=== PATIENT | female | born 1985 | race Caucasian/White ===

== ENCOUNTER 2017-11-23 19:12 | Inpatient (IN) | payer BC ==
[2017-11-23] MEDS ORDERED: Sodium Chloride 0.9% 1,000 ML IV STA ×2 (20:10→23:09)
--- NOTE | 2017-11-23 20:11 | ED PDOC ---
HPI: Abdomen Time Seen by Provider: 11/23/17 19:38 Chief Complaint (Nursing): GI Problem Chief Complaint (Provider): Chills, nausea, abdominal spasm History Per: Patient History/Exam Limitations: no limitations Onset/Duration Of Symptoms: Days (yesterday) Current Symptoms Are (Timing): Still Present Associated Symptoms: Fever, Urinary Symptoms Additional Complaint(s): 32 year old female, with no past medical history, presents to the ED complaining of having chills yesterday and nausea, abdominal spasms, and multiple episodes of diarrhea since this morning. Patient reports she had white stool with mucous but is now bloody and also states having a subjective fever and dysuria. Denies having hematuria. PDM: none Past Medical History Reviewed: Historical Data, Nursing Documentation, Vital Signs Vital Signs: Last Vital Signs Temp 98.1 F 11/26/17 08:52 Pulse 71 11/26/17 08:52 Resp 20 11/26/17 08:52 BP 120/80 11/26/17 08:52 Pulse Ox 99 11/27/17 10:34 - Medical History PMH: No Chronic Diseases - Surgical History Surgical History: No Surg Hx - Family History Family History: States: Unknown Family Hx - Social History Current smoker - smoking cessation education provided: No Alcohol: None - Home Medications Home Medications: Ambulatory Orders Medication Instructions Recorded Drospir/Eth Estra/Levomefol Ca 1 tab PO DAILY 11/23/17 [Alem 28 Tablet] Escitalopram [Lexapro] 5 mg PO QAM 11/23/17 - Allergies Allergies/Adverse Reactions: Allergies Allergy/AdvReac Type Severity Reaction Status Date / Time Sulfa (Sulfonamide Allergy RASH Verified 11/23/17 19:23 Antibiotics) Review of Systems ROS Statement: Except As Marked, All Systems Reviewed And Found Negative Constitutional: Positive for: Fever, Chills Gastrointestinal: Positive for: Nausea, Diarrhea, Other (Abdominal spasm) Genitourinary Female: Positive for: Dysuria. Negative for: Hematuria Physical Exam - Reviewed Nursing Documentation Reviewed: Yes Vital Signs Reviewed: Yes - Physical Exam Appears: Positive for: Non-toxic, No Acute Distress Head Exam: Positive for: ATRAUMATIC, NORMOCEPHALIC Skin: Positive for: Normal Color, Warm, Dry Eye Exam: Positive for: Normal appearance Neck: Positive for: Normal, Painless ROM Cardiovascular/Chest: Positive for: Regular Rate, Rhythm. Negative for: Murmur Respiratory: Positive for: Normal Breath Sounds. Negative for: Wheezing, Respiratory Distress Gastrointestinal/Abdominal: Positive for: Tenderness (mild generalized tenderness). Negative for: Guarding, Rebound Extremity: Positive for: Normal ROM Neurologic/Psych: Positive for: Alert, Oriented. Negative for: Motor/Sensory Deficits - Laboratory Results Result Diagrams: 11/24/17 05:30 11/24/17 05:30 - ECG O2 Sat by Pulse Oximetry: 99 (RA) Pulse Ox Interpretation: Normal Medical Decision Making Medical Decision Making: Initial Impression: abdominal spasms and bloody stool. Differentials include but not limited to gastroenteritis, colitis, dehydration, UTI. Initial Plan: Beta HCG CMP Lipase ED urine ED urine dipstick CBC PTT Prothrombin Morphine 2mg IV Sodium chloride 1000mL IV Ondansetron 4mg PO Urinalysis EXAM: CT Abdomen and Pelvis With Intravenous Contrast EXAM DATE/TIME: 11/23/2017 9:25 PM CLINICAL HISTORY: 32 years old, female; Pain and signs and symptoms; Nausea and other: Chills, , bloody diarrhea; Other: Abd. Spasms TECHNIQUE: Axial computed tomography images of the abdomen and pelvis with intravenous contrast. All CT scans at this facility use at least one of these dose optimization techniques: automated exposure control; mA and/or kV adjustment per patient size (includes targeted exams where dose is matched to clinical indication); or iterative reconstruction. CONTRAST: 90 ml of [id number] administered intravenously. COMPARISON: No relevant prior studies available. FINDINGS: ABDOMEN: Liver: Normal. No mass. Gallbladder and bile ducts: Normal. No calcified stones. No ductal dilation. Pancreas: Normal. No ductal dilation. Spleen: Normal. No splenomegaly. Adrenals: Normal. No mass. Kidneys and ureters: Normal. No hydronephrosis. Stomach and bowel: The small bowel and the colon are difficult to evaluate secondary to lack of bowel contrast. There is no bowel dilatation to suggest obstruction. There is moderate wall thickening of the sigmoid colon and the rectum with mild surrounding fat haziness, suggesting colitis/proctitis. There is no bowel dilatation to suggest obstruction. Appendix: No evidence of appendicitis. PELVIS: Bladder: The bladder is moderately distended. Reproductive: There is a 2.5 x 2.7 cm masslike density right adnexa, abutting the right uterus fundus. ABDOMEN and PELVIS: Intraperitoneal space: No free air. No significant fluid collection. Vasculature: There is no extravasated vascular contrast in the gastrointestinal lumen to suggest active gastrointestinal hemorrhage. There is no aortic aneurysm or dissection. Lymph nodes: No enlarged lymph nodes. IMPRESSION: 1. There is moderate wall thickening of the sigmoid colon and the rectum with mild surrounding fat haziness, suggesting colitis/proctitis. 2. There is a 2.5 x 2.7 cm masslike density right adnexa, abutting the right uterus fundus. This could be a pedunculated uterine fibroids or a right ovarian mass. This can be further evaluated with an ultrasound examination. 3. The bladder is moderately distended. Scribe Attestation: Documented by Zach Bourne and Shanon Michelle acting as a scribe for Kimi Rascon MD. Provider Scribe Attestation: All medical record entries made by the Scribe were at my direction and personally dictated by me. I have reviewed the chart and agree that the record accurately reflects my personal performance of the history, physical exam, medical decision making, and the department course for this patient. I have also personally directed, reviewed, and agree with the discharge instructions and disposition. Disposition - Clinical Impression Clinical Impression: Colitis, Proctitis - Disposition Disposition Time: 23:10 Condition: STABLE - Pt Status Changed To: Hospital Disposition Of: Observation - POA Present On Arrival: None
[2017-11-23 20:37] LABS: BASO % 0.2 % (0.0-2.0); EOS % 0.2 % (0.0-4.0); HEMOGLOBIN 13.5 g/dL (12.0-16.0); LYMPH # 1.1 K/uL (1.0-4.3); LYMPH % 16.2 % (20.0-40.0); MEAN CELL VOLUME 92.6 fl (81.0-99.0); MEAN CORPUSCULAR HEMOGLOBIN 31.6 pg (27.0-31.0); MEAN CORPUSCULAR HGB CONC 34.2 g/dL (33.0-37.0); MEAN PLATELET VOLUME 9.5 fl (7.2-11.7); MONO # 0.6 K/uL (0.0-0.8); MONO % 8.8 % (0.0-10.0); NEUT # 4.9 K/uL (1.8-7.0); NEUT % 74.6 % (50.0-75.0); RBC 4.28 Mil/uL (3.80-5.20); RED CELL DISTRIBUTION WIDTH 12.7 % (11.5-14.5); WHITE BLOOD COUNT 6.5 K/uL (4.8-10.8)
[2017-11-23 20:47] LABS: ALB/GLOB RATIO 1.2 (1.0-2.1); ALBUMIN 4.2 g/dL (3.5-5.0); ALT/SGPT 19 U/L (9-52); AST/SGOT 25 U/L (14-36); BLOOD UREA NITROGEN 10 mg/dl (7-17); CALCIUM 9.4 mg/dL (8.4-10.2); GFR AFRICAN-AMERICAN > 60; GFR NON-AFRICAN AMERICAN > 60; LIPASE 120 U/L (23-300)
[2017-11-23 21:15] LABS: INR 0.9 (0.9-1.2); PARTIAL THROMBOPLASTIN TIME 26.5 Seconds (25.6-37.1); PROTHROMBIN TIME 10.2 Seconds (9.8-13.1)
[2017-11-23 21:34] LABS: URINE COLOR STRAW (YELLOW)
[2017-11-23 21:35] LABS: URINE BILIRUBIN NEGATIVE (NEGATIVE); URINE BLOOD NEGATIVE (NEGATIVE); URINE CLARITY CLEAR (Clear); URINE GLUCOSE (UA) NEGATIVE (Normal); URINE PROTEIN NEGATIVE (NEGATIVE); URINE UROBILINOGEN 0.2 mg/dL (0.2-1.0)
[2017-11-23] MEDS ORDERED: Iohexol 300 100 ML IJ ONE (21:35)
[2017-11-23] MEDS ORDERED: Sodium Chloride 0.9% 50 ML IV ONE (21:35)
[2017-11-23 21:36] LABS: SQUAMOUS EPITHIAL 1 /hpf (0-5); URINE BACTERIA FEW (<OCC); URINE LEUKOCYTE ESTERASE NEGATIVE Leu/uL (Negative)
[2017-11-23] MEDS ORDERED: metroNIDAZOLE 500mg/100ml NS 100 ML IV STA (23:09)
[2017-11-23] MEDS ORDERED: Ciprofloxacin 400mg/200ml D5W 400 MG/200 ML BAG IV STA (23:09)
[2017-11-23] MEDS ORDERED: Ciprofloxacin 400mg/200ml D5W 400 MG/200 ML BAG IVPB ONE (23:43)
[2017-11-24 06:21] LABS: BASO % 0.2 % (0.0-2.0); EOS % 0.6 % (0.0-4.0); HEMOGLOBIN 12.4 g/dL (12.0-16.0); LYMPH # 2.3 K/uL (1.0-4.3); MEAN CELL VOLUME 92.3 fl (81.0-99.0); MEAN CORPUSCULAR HEMOGLOBIN 31.9 pg (27.0-31.0); MEAN CORPUSCULAR HGB CONC 34.6 g/dL (33.0-37.0); MEAN PLATELET VOLUME 9.6 fl (7.2-11.7); MONO # 0.8 K/uL (0.0-0.8); MONO % 13.7 % (0.0-10.0); NEUT # 2.6 K/uL (1.8-7.0); NEUT % 45.5 % (50.0-75.0); RBC 3.89 Mil/uL (3.80-5.20); RED CELL DISTRIBUTION WIDTH 12.5 % (11.5-14.5); WHITE BLOOD COUNT 5.8 K/uL (4.8-10.8)
[2017-11-24 06:30] LABS: ALB/GLOB RATIO 1.1 (1.0-2.1); ALBUMIN 3.2 g/dL (3.5-5.0); ALT/SGPT 23 U/L (9-52); AST/SGOT 20 U/L (14-36); BLOOD UREA NITROGEN 7 mg/dl (7-17); CALCIUM 8.8 mg/dL (8.4-10.2); GFR AFRICAN-AMERICAN > 60; GFR NON-AFRICAN AMERICAN > 60; HDL CHOLESTEROL 83 MG/DL (30-70)
[2017-11-24 06:46] LABS: T4 10.5 ug/dl (5.5-11.0)
[2017-11-24 06:48] LABS: LDL CHOLESTEROL 56 mg/dL (0-129)
[2017-11-24 07:00] LABS: T3 1.46 nmol/L (1.49-2.60)
--- NOTE | 2017-11-24 08:56 | CP.PCM.HP ---
<Gloria Pope - Last Filed: 11/24/17 16:16> History of Present Illness - History of Present Illness History of Present Illness: 32 yo F, no past medical hx (has psych hx anxiety), admitted due to abdominal pain with findings of colitis on CT scan done in ED. Pt presented to ED with c/ o chills, nausea, abdominal spasms, multiple episodes of diarrhea since morning of presentation. States she had one BM that was white/mucousy, and one that was bloody. yesterday and nausea, abdominal spasms, and multiple episodes of diarrhea since this morning. Patient reports she had white stool with mucous but is now bloody. Pt relates that she went to [place] recently and ate seafood, as well as drank water and did not really pay attention to what she ate. PDM: [facility] (Dr. Jeffrey) Surg hx: none Fam hx: htn, constipation Soc hx: denies tobacco, drugs. alcohol 1-2 drinks/week Allergies: sulfa Meds: lexapro, control pill Present on Admission - Present on Admission Any Indicators Present on Admission: No Review of Systems - Review of Systems All systems: reviewed and no additional remarkable complaints except - Constitutional Constitutional: Chills - Gastrointestinal Gastrointestinal: Abdominal Pain, Change in Bowel Habits, Hematochezia, Nausea Past Patient History - Past Medical History & Family History Past Medical History?: Yes - Past Social History Smoking Status: Never Smoked Alcohol: None Drugs: Denies - CARDIAC Hx Cardiac Disorders: No - PULMONARY Hx Respiratory Disorders: No - NEUROLOGICAL Hx Neurological Disorder: No - HEENT Hx HEENT Problems: No - RENAL Hx Chronic Kidney Disease: No - ENDOCRINE/METABOLIC Hx Endocrine Disorders: No - HEMATOLOGICAL/ONCOLOGICAL Hx Blood Disorders: No - INTEGUMENTARY Hx Dermatological Problems: No - MUSCULOSKELETAL/RHEUMATOLOGICAL Hx Musculoskeletal Disorders: No Hx Falls: No - GASTROINTESTINAL Hx Gastrointestinal Disorders: No - GENITOURINARY/GYNECOLOGICAL Hx Genitourinary Disorders: No - PSYCHIATRIC Hx Psychophysiologic Disorder: No Hx Substance Use: No - SURGICAL HISTORY Hx Surgeries: No - ANESTHESIA Hx Anesthesia: No Hx Anesthesia Reactions: No Hx Malignant Hyperthermia: No Has any member of the family had a problem w/ anesthesia?: No Meds Allergies/Adverse Reactions: Allergies Allergy/AdvReac Type Severity Reaction Status Date / Time Sulfa (Sulfonamide Allergy RASH Verified 11/23/17 19:23 Antibiotics) Physical Exam - Constitutional Appears: Non-toxic - Eye Exam Eye Exam: Normal appearance - Respiratory Exam Respiratory Exam: Clear to Auscultation Bilateral, NORMAL BREATHING PATTERN - Cardiovascular Exam Cardiovascular Exam: REGULAR RHYTHM - GI/Abdominal Exam GI & Abdominal Exam: Normal Bowel Sounds, Tenderness (mild, diffuse) - Extremities Exam Extremities exam: Positive for: normal inspection. Negative for: calf tenderness - Neurological Exam Neurological exam: Alert, Oriented x3 - Psychiatric Exam Psychiatric exam: Normal Mood - Skin Skin Exam: Normal Color, Warm Results - Vital Signs Recent Vital Signs: Last Vital Signs Temp 98.2 F 11/24/17 08:23 Pulse 64 11/24/17 08:23 Resp 19 11/24/17 08:23 BP 112/72 11/24/17 08:23 Pulse Ox 99 11/24/17 08:23 - Labs Result Diagrams: 11/24/17 05:30 11/24/17 05:30 Labs: Laboratory Results - last 24 hr 11/23/17 11/23/17 11/23/17 20:30 20:30 20:30 WBC 6.5 RBC 4.28 Hgb 13.5 Hct 39.6 MCV 92.6 MCH 31.6 H MCHC 34.2 RDW 12.7 Plt Count 168 MPV 9.5 Neut % (Auto) 74.6 Lymph % (Auto) 16.[address] [place] % (Auto) 8.8 Eos % (Auto) 0.2 Baso % (Auto) 0.2 Neut # (Auto) 4.9 Lymph # (Auto) 1.1 [place] # (Auto) 0.6 Eos # (Auto) 0.0 Baso # (Auto) 0.0 PT 10.2 INR 0.9 APTT 26.5 Sodium 138 Potassium 4.5 Chloride 104 Carbon Dioxide 24 Anion Gap 15 BUN 10 Creatinine 0.7 Est GFR ( Amer) > 60 Est GFR (Non-Af Amer) > 60 Random Glucose 106 H Calcium 9.4 Total Bilirubin 0.3 AST 25 ALT 19 Alkaline Phosphatase 43 Total Protein 7.8 Albumin 4.2 Globulin 3.6 Albumin/Globulin Ratio 1.2 Triglycerides Cholesterol LDL Cholesterol Direct HDL Cholesterol Lipase 120 Thyroxine (T4) Total T3 TSH 3rd Generation Beta HCG, Quant Urine Color Urine Clarity Urine pH Ur Specific [place] Urine Protein Urine Glucose (UA) Urine Ketones Urine Blood Urine Nitrate Urine Bilirubin Urine Urobilinogen Ur Leukocyte Esterase Urine RBC (Auto) Urine Microscopic WBC Ur Squamous Epith Cells Urine Bacteria 11/23/17 11/23/17 11/24/17 20:30 21:17 05:30 WBC 5.8 RBC 3.89 Hgb 12.4 Hct 35.9 MCV 92.3 MCH 31.9 H MCHC 34.6 RDW 12.5 Plt Count 151 MPV 9.6 Neut % (Auto) 45.5 L Lymph % (Auto) 40.0 [place] % (Auto) 13.7 H Eos % (Auto) 0.6 Baso % (Auto) 0.2 Neut # (Auto) 2.6 Lymph # (Auto) 2.3 [place] # (Auto) 0.8 Eos # (Auto) 0.0 Baso # (Auto) 0.0 PT INR APTT Sodium Potassium Chloride Carbon Dioxide Anion Gap BUN Creatinine Est GFR ( Amer) Est GFR (Non-Af Amer) Random Glucose Calcium Total Bilirubin AST ALT Alkaline Phosphatase Total Protein Albumin Globulin Albumin/Globulin Ratio Triglycerides Cholesterol LDL Cholesterol Direct HDL Cholesterol Lipase Thyroxine (T4) Total T3 TSH 3rd Generation Beta HCG, Quant < 2.39 Urine Color Straw Urine Clarity Clear Urine pH 7.0 Ur Specific [place] < 1.005 Urine Protein Negative Urine Glucose (UA) Negative Urine Ketones Negative Urine Blood Negative Urine Nitrate Negative Urine Bilirubin Negative Urine Urobilinogen 0.2 Ur Leukocyte Esterase Negative Urine RBC (Auto) 1 Urine Microscopic WBC < 1 Ur Squamous Epith Cells 1 Urine Bacteria Few H 11/24/17 05:30 WBC RBC Hgb Hct MCV MCH MCHC RDW Plt Count MPV Neut % (Auto) Lymph % (Auto) [place] % (Auto) Eos % (Auto) Baso % (Auto) Neut # (Auto) Lymph # (Auto) [place] # (Auto) Eos # (Auto) Baso # (Auto) PT INR APTT Sodium 139 Potassium 4.1 Chloride 107 Carbon Dioxide 25 Anion Gap 11 BUN 7 Creatinine 0.8 Est GFR ( Amer) > 60 Est GFR (Non-Af Amer) > 60 Random Glucose 88 Calcium 8.8 Total Bilirubin 0.2 AST 20 ALT 23 Alkaline Phosphatase 34 L D Total Protein 6.3 Albumin 3.2 L D Globulin 3.1 Albumin/Globulin Ratio 1.1 Triglycerides 92 Cholesterol 163 LDL Cholesterol Direct 56 HDL Cholesterol 83 H Lipase Thyroxine (T4) 10.5 Total T3 1.46 L TSH 3rd Generation 9.37 H Beta HCG, Quant Urine Color Urine Clarity Urine pH Ur Specific [place] Urine Protein Urine Glucose (UA) Urine Ketones Urine Blood Urine Nitrate Urine Bilirubin Urine Urobilinogen Ur Leukocyte Esterase Urine RBC (Auto) Urine Microscopic WBC Ur Squamous Epith Cells Urine Bacteria Assessment & Plan - Assessment and Plan (Free Text) Assessment: 32 yo F with no known med hx; admitted due to abdominal pain and change in stool character, with findings of colitis on CT. Also finding of right adnexal masslike density on CT. Plan: - Admitted to med surg - IV fluids - Pain control - IV abx: cipro and flagyll - GI consult- Dr. Parham -- stool for ova/parasites - Pelvic u/s to f/u adnexal mass - Liquid diet - SCD <Aureliano Cavazos K - Last Filed: 11/24/17 20:16> Results - Vital Signs Recent Vital Signs: Last Vital Signs Temp 97.9 F 11/24/17 16:11 Pulse 58 L 11/24/17 16:11 Resp 18 11/24/17 16:11 BP 105/66 11/24/17 16:11 Pulse Ox 100 11/24/17 16:11 - Labs Result Diagrams: 11/24/17 05:30 11/24/17 05:30 Labs: Laboratory Results - last 24 hr 11/23/17 11/23/17 11/23/17 20:30 20:30 20:30 WBC 6.5 RBC 4.28 Hgb 13.5 Hct 39.6 MCV 92.6 MCH 31.6 H MCHC 34.2 RDW 12.7 Plt Count 168 MPV 9.5 Neut % (Auto) 74.6 Lymph % (Auto) 16.[address] [place] % (Auto) 8.8 Eos % (Auto) 0.2 Baso % (Auto) 0.2 Neut # (Auto) 4.9 Lymph # (Auto) 1.1 [place] # (Auto) 0.6 Eos # (Auto) 0.0 Baso # (Auto) 0.0 PT 10.2 INR 0.9 APTT 26.5 Sodium 138 Potassium 4.5 Chloride 104 Carbon Dioxide 24 Anion Gap 15 BUN 10 Creatinine 0.7 Est GFR ( Amer) > 60 Est GFR (Non-Af Amer) > 60 Random Glucose 106 H Calcium 9.4 Total Bilirubin 0.3 AST 25 ALT 19 Alkaline Phosphatase 43 Total Protein 7.8 Albumin 4.2 Globulin 3.6 Albumin/Globulin Ratio 1.2 Triglycerides Cholesterol LDL Cholesterol Direct HDL Cholesterol Lipase 120 Thyroxine (T4) Total T3 TSH 3rd Generation Beta HCG, Quant Urine Color Urine Clarity Urine pH Ur Specific [place] Urine Protein Urine Glucose (UA) Urine Ketones Urine Blood Urine Nitrate Urine Bilirubin Urine Urobilinogen Ur Leukocyte Esterase Urine RBC (Auto) Urine Microscopic WBC Ur Squamous Epith Cells Urine Bacteria 11/23/17 11/23/17 11/24/17 20:30 21:17 05:30 WBC 5.8 RBC 3.89 Hgb 12.4 Hct 35.9 MCV 92.3 MCH 31.9 H MCHC 34.6 RDW 12.5 Plt Count 151 MPV 9.6 Neut % (Auto) 45.5 L Lymph % (Auto) 40.0 [place] % (Auto) 13.7 H Eos % (Auto) 0.6 Baso % (Auto) 0.2 Neut # (Auto) 2.6 Lymph # (Auto) 2.3 [place] # (Auto) 0.8 Eos # (Auto) 0.0 Baso # (Auto) 0.0 PT INR APTT Sodium Potassium Chloride Carbon Dioxide Anion Gap BUN Creatinine Est GFR ( Amer) Est GFR (Non-Af Amer) Random Glucose Calcium Total Bilirubin AST ALT Alkaline Phosphatase Total Protein Albumin Globulin Albumin/Globulin Ratio Triglycerides Cholesterol LDL Cholesterol Direct HDL Cholesterol Lipase Thyroxine (T4) Total T3 TSH 3rd Generation Beta HCG, Quant < 2.39 Urine Color Straw Urine Clarity Clear Urine pH 7.0 Ur Specific [place] < 1.005 Urine Protein Negative Urine Glucose (UA) Negative Urine Ketones Negative Urine Blood Negative Urine Nitrate Negative Urine Bilirubin Negative Urine Urobilinogen 0.2 Ur Leukocyte Esterase Negative Urine RBC (Auto) 1 Urine Microscopic WBC < 1 Ur Squamous Epith Cells 1 Urine Bacteria Few H 11/24/17 05:30 WBC RBC Hgb Hct MCV MCH MCHC RDW Plt Count MPV Neut % (Auto) Lymph % (Auto) [place] % (Auto) Eos % (Auto) Baso % (Auto) Neut # (Auto) Lymph # (Auto) [place] # (Auto) Eos # (Auto) Baso # (Auto) PT INR APTT Sodium 139 Potassium 4.1 Chloride 107 Carbon Dioxide 25 Anion Gap 11 BUN 7 Creatinine 0.8 Est GFR ( Amer) > 60 Est GFR (Non-Af Amer) > 60 Random Glucose 88 Calcium 8.8 Total Bilirubin 0.2 AST 20 ALT 23 Alkaline Phosphatase 34 L D Total Protein 6.3 Albumin 3.2 L D Globulin 3.1 Albumin/Globulin Ratio 1.1 Triglycerides 92 Cholesterol 163 LDL Cholesterol Direct 56 HDL Cholesterol 83 H Lipase Thyroxine (T4) 10.5 Total T3 1.46 L TSH 3rd Generation 9.37 H Beta HCG, Quant Urine Color Urine Clarity Urine pH Ur Specific [place] Urine Protein Urine Glucose (UA) Urine Ketones Urine Blood Urine Nitrate Urine Bilirubin Urine Urobilinogen Ur Leukocyte Esterase Urine RBC (Auto) Urine Microscopic WBC Ur Squamous Epith Cells Urine Bacteria Assessment & Plan - Assessment and Plan (Free Text) Plan: Patient was personally seen and examined by me in rounds with residents. Available labs and diagnostic data reviewed. Case, Patient's condition and management plan discussed with residents in rounds. Agree with resident's progress note. Plan: As ordered.
[2017-11-24] MEDS ORDERED: Chlorhexidine Gluconate 1 APPL/PKT TP ONE (08:59)
--- NOTE | 2017-11-24 09:36 | CP.PCM.CON ---
<Prabha Magdaleno - Last Filed: 11/24/17 18:21> History of Present Illness - History of Present Illness History of Present Illness: Pgy5 Initial GI Consult Mandy Sumner is a 32F w/ no sig medical hx who presents to the ER who sever abd pain. Pt states that the onset was 1 day prior and it was 10 out of 10. She states that the pain was in the periumbilical area. she noted diarrhea after having the abd pain. She states that the stool was initially liquid but then had mixed bright red blood. Pt denies any previous episode. Recently traveled to [place] 3 days prior. denies any nause, vomiting. + Fever and chills. Denies any recent abx use, consumption of raw meat, camping, or hospitalizations Surg hx: none Fam hx: htn, constipation Soc hx: denies tobacco, drugs. alcohol 1-2 drinks/week Allergies: sulfa Ros: 12 point ROS conducted, neg other than above Past Patient History - Past Medical History & Family History Past Medical History?: Yes - Past Social History Smoking Status: Never Smoked - CARDIAC Hx Cardiac Disorders: No - PULMONARY Hx Respiratory Disorders: No - NEUROLOGICAL Hx Neurological Disorder: No - HEENT Hx HEENT Problems: No - RENAL Hx Chronic Kidney Disease: No - ENDOCRINE/METABOLIC Hx Endocrine Disorders: No - HEMATOLOGICAL/ONCOLOGICAL Hx Blood Disorders: No - INTEGUMENTARY Hx Dermatological Problems: No - MUSCULOSKELETAL/RHEUMATOLOGICAL Hx Musculoskeletal Disorders: No Hx Falls: No - GASTROINTESTINAL Hx Gastrointestinal Disorders: No - GENITOURINARY/GYNECOLOGICAL Hx Genitourinary Disorders: No - PSYCHIATRIC Hx Psychophysiologic Disorder: No Hx Substance Use: No - SURGICAL HISTORY Hx Surgeries: No - ANESTHESIA Hx Anesthesia: No Hx Anesthesia Reactions: No Hx Malignant Hyperthermia: No Has any member of the family had a problem w/ anesthesia?: No Meds Allergies/Adverse Reactions: Allergies Allergy/AdvReac Type Severity Reaction Status Date / Time Sulfa (Sulfonamide Allergy RASH Verified 11/23/17 19:23 Antibiotics) - Medications Medications: Current Medications Escitalopram Oxalate (Lexapro) 5 mg PO QAM [facility] Ciprofloxacin (Cipro 400mg/200ml Dsw) 400 mg in 200 mls @ 200 mls/hr IVPB Q12 [facility] PRN Reason: Protocol Metronidazole (Flagyl 500mg/100ml Ns) 100 mls @ 100 mls/hr IVPB Q8 [facility] PRN Reason: Protocol Morphine Sulfate (Morphine) 2 mg IVP Q6 PRN PRN Reason: Pain, moderate (4-7) Last Admin: 11/24/17 00:56 Dose: 2 mg Pantoprazole Sodium (Protonix Ec Tab) 40 mg PO DAILY [facility] Physical Exam - Constitutional Appears: Well, No Acute Distress - Head Exam Head Exam: ATRAUMATIC, NORMOCEPHALIC - Eye Exam Eye Exam: Normal appearance - ENT Exam ENT Exam: Mucous Membranes Moist, Normal Exam - Neck Exam Neck exam: Positive for: Normal Inspection - Respiratory Exam Respiratory Exam: Clear to Auscultation Bilateral, NORMAL BREATHING PATTERN. absent: Rales, Rhonchi, Wheezes, Respiratory Distress - Cardiovascular Exam Cardiovascular Exam: REGULAR RHYTHM, +S1, +S2 - GI/Abdominal Exam GI & Abdominal Exam: Hyperactive Bowel Sounds, Soft, Tenderness (periumbilical area). absent: Diminished Bowel Sounds, Distended, Firm, Guarding, Organomegaly , Pulsatile Mass, Rebound, Rigid - Extremities Exam Extremities exam: Negative for: joint swelling, pedal edema - Back Exam Back exam: NORMAL INSPECTION - Psychiatric Exam Psychiatric exam: Normal Affect, Normal Mood - Skin Skin Exam: Dry, Intact, Normal Color, Warm Results - Vital Signs Recent Vital Signs: Last Vital Signs Temp 98.2 F 11/24/17 08:23 Pulse 64 11/24/17 08:23 Resp 19 11/24/17 08:23 BP 112/72 11/24/17 08:23 Pulse Ox 99 11/24/17 08:23 - Labs Result Diagrams: 11/24/17 05:30 11/24/17 05:30 Labs: Laboratory Results - last 24 hr 11/23/17 11/23/17 11/23/17 20:30 20:30 20:30 WBC 6.5 RBC 4.28 Hgb 13.5 Hct 39.6 MCV 92.6 MCH 31.6 H MCHC 34.2 RDW 12.7 Plt Count 168 MPV 9.5 Neut % (Auto) 74.6 Lymph % (Auto) 16.2 L [place] % (Auto) 8.8 Eos % (Auto) 0.2 Baso % (Auto) 0.2 Neut # (Auto) 4.9 Lymph # (Auto) 1.1 [place] # (Auto) 0.6 Eos # (Auto) 0.0 Baso # (Auto) 0.0 PT 10.2 INR 0.9 APTT 26.5 Sodium 138 Potassium 4.5 Chloride 104 Carbon Dioxide 24 Anion Gap 15 BUN 10 Creatinine 0.7 Est GFR ( Amer) > 60 Est GFR (Non-Af Amer) > 60 Random Glucose 106 H Calcium 9.4 Total Bilirubin 0.3 AST 25 ALT 19 Alkaline Phosphatase 43 Total Protein 7.8 Albumin 4.2 Globulin 3.6 Albumin/Globulin Ratio 1.2 Triglycerides Cholesterol LDL Cholesterol Direct HDL Cholesterol Lipase 120 Thyroxine (T4) Total T3 TSH 3rd Generation Beta HCG, Quant Urine Color Urine Clarity Urine pH Ur Specific Fitzhugh Urine Protein Urine Glucose (UA) Urine Ketones Urine Blood Urine Nitrate Urine Bilirubin Urine Urobilinogen Ur Leukocyte Esterase Urine RBC (Auto) Urine Microscopic WBC Ur Squamous Epith Cells Urine Bacteria 11/23/17 11/23/17 11/24/17 20:30 21:17 05:30 WBC 5.8 RBC 3.89 Hgb 12.4 Hct 35.9 MCV 92.3 MCH 31.9 H MCHC 34.6 RDW 12.5 Plt Count 151 MPV 9.6 Neut % (Auto) 45.5 L Lymph % (Auto) 40.0 Prowers % (Auto) 13.7 H Eos % (Auto) 0.6 Baso % (Auto) 0.2 Neut # (Auto) 2.6 Lymph # (Auto) 2.3 [place] # (Auto) 0.8 Eos # (Auto) 0.0 Baso # (Auto) 0.0 PT INR APTT Sodium Potassium Chloride Carbon Dioxide Anion Gap BUN Creatinine Est GFR ( Amer) Est GFR (Non-Af Amer) Random Glucose Calcium Total Bilirubin AST ALT Alkaline Phosphatase Total Protein Albumin Globulin Albumin/Globulin Ratio Triglycerides Cholesterol LDL Cholesterol Direct HDL Cholesterol Lipase Thyroxine (T4) Total T3 TSH 3rd Generation Beta HCG, Quant < 2.39 Urine Color Straw Urine Clarity Clear Urine pH 7.0 Ur Specific Fitzhugh < 1.005 Urine Protein Negative Urine Glucose (UA) Negative Urine Ketones Negative Urine Blood Negative Urine Nitrate Negative Urine Bilirubin Negative Urine Urobilinogen 0.2 Ur Leukocyte Esterase Negative Urine RBC (Auto) 1 Urine Microscopic WBC < 1 Ur Squamous Epith Cells 1 Urine Bacteria Few H 11/24/17 05:30 WBC RBC Hgb Hct MCV MCH MCHC RDW Plt Count MPV Neut % (Auto) Lymph % (Auto) Prowers % (Auto) Eos % (Auto) Baso % (Auto) Neut # (Auto) Lymph # (Auto) [place] # (Auto) Eos # (Auto) Baso # (Auto) PT INR APTT Sodium 139 Potassium 4.1 Chloride 107 Carbon Dioxide 25 Anion Gap 11 BUN 7 Creatinine 0.8 Est GFR ( Amer) > 60 Est GFR (Non-Af Amer) > 60 Random Glucose 88 Calcium 8.8 Total Bilirubin 0.2 AST 20 ALT 23 Alkaline Phosphatase 34 L D Total Protein 6.3 Albumin 3.2 L D Globulin 3.1 Albumin/Globulin Ratio 1.1 Triglycerides 92 Cholesterol 163 LDL Cholesterol Direct 56 HDL Cholesterol 83 H Lipase Thyroxine (T4) 10.5 Total T3 1.46 L TSH 3rd Generation 9.37 H Beta HCG, Quant Urine Color Urine Clarity Urine pH Ur Specific Fitzhugh Urine Protein Urine Glucose (UA) Urine Ketones Urine Blood Urine Nitrate Urine Bilirubin Urine Urobilinogen Ur Leukocyte Esterase Urine RBC (Auto) Urine Microscopic WBC Ur Squamous Epith Cells Urine Bacteria Assessment & Plan - Assessment and Plan (Free Text) Assessment: Mandy Sumner is a 32F w/ no sig hx who presents to the ER with abd pain. CT abd revealed sigmoid colitis and an adnexal mass Colitis, etiology uknown, dx: infectous vs IBD, r/o malignancy Adnexal mass diarrhea 2/2 colitis nausea Plan: -CT abd/pel reviewed by Dr Parham -continue IV abx, cipro flagyl, finish 7 day course at home -follow-up w/ Dr. parham as an outpt for colonoscopy -stool cultures and c.diff -diet as tolerated -continue IV fluids -recommend [employer] eval for adnexal mass -blood cultures x2 D/W Dr. parham <Jennifer Parham - Last Filed: 11/24/17 18:41> Meds - Medications Medications: Current Medications Escitalopram Oxalate (Lexapro) 5 mg PO QAM [facility] Last Admin: 11/24/17 16:42 Dose: 5 mg Ciprofloxacin (Cipro 400mg/200ml Dsw) 400 mg in 200 mls @ 200 mls/hr IVPB Q12 [facility] PRN Reason: Protocol Last Admin: 11/24/17 13:25 Dose: 200 mls/hr Metronidazole (Flagyl 500mg/100ml Ns) 100 mls @ 100 mls/hr IVPB Q8 [facility] PRN Reason: Protocol Last Admin: 11/24/17 16:42 Dose: 100 mls/hr Morphine Sulfate (Morphine) 2 mg IVP Q6 PRN PRN Reason: Pain, moderate (4-7) Last Admin: 11/24/17 13:24 Dose: 2 mg Pantoprazole Sodium (Protonix Ec Tab) 40 mg PO DAILY [facility] Last Admin: 11/24/17 13:24 Dose: 40 mg Results - Vital Signs Recent Vital Signs: Last Vital Signs Temp 97.9 F 11/24/17 16:11 Pulse 58 L 11/24/17 16:11 Resp 18 11/24/17 16:11 BP 105/66 11/24/17 16:11 Pulse Ox 100 11/24/17 16:11 - Labs Result Diagrams: 11/24/17 05:30 11/24/17 05:30 Labs: Laboratory Results - last 24 hr 11/23/17 11/23/17 11/23/17 20:30 20:30 20:30 WBC 6.5 RBC 4.28 Hgb 13.5 Hct 39.6 MCV 92.6 MCH 31.6 H MCHC 34.2 RDW 12.7 Plt Count 168 MPV 9.5 Neut % (Auto) 74.6 Lymph % (Auto) 16.2 L [place] % (Auto) 8.8 Eos % (Auto) 0.2 Baso % (Auto) 0.2 Neut # (Auto) 4.9 Lymph # (Auto) 1.1 [place] # (Auto) 0.6 Eos # (Auto) 0.0 Baso # (Auto) 0.0 PT 10.2 INR 0.9 APTT 26.5 Sodium 138 Potassium 4.5 Chloride 104 Carbon Dioxide 24 Anion Gap 15 BUN 10 Creatinine 0.7 Est GFR ( Amer) > 60 Est GFR (Non-Af Amer) > 60 Random Glucose 106 H Calcium 9.4 Total Bilirubin 0.3 AST 25 ALT 19 Alkaline Phosphatase 43 Total Protein 7.8 Albumin 4.2 Globulin 3.6 Albumin/Globulin Ratio 1.2 Triglycerides Cholesterol LDL Cholesterol Direct HDL Cholesterol Lipase 120 Thyroxine (T4) Total T3 TSH 3rd Generation Beta HCG, Quant Urine Color Urine Clarity Urine pH Ur Specific Fitz[place]ugh Urine Protein Urine Glucose (UA) Urine Ketones Urine Blood Urine Nitrate Urine Bilirubin Urine Urobilinogen Ur Leukocyte Esterase Urine RBC (Auto) Urine Microscopic WBC Ur Squamous Epith Cells Urine Bacteria 11/23/17 11/23/17 11/24/17 20:30 21:17 05:30 WBC 5.8 RBC 3.89 Hgb 12.4 Hct 35.9 MCV 92.3 MCH 31.9 H MCHC 34.6 RDW 12.5 Plt Count 151 MPV 9.6 Neut % (Auto) 45.5 L Lymph % (Auto) 40.0 [place] % (Auto) 13.7 H Eos % (Auto) 0.6 Baso % (Auto) 0.2 Neut # (Auto) 2.6 Lymph # (Auto) 2.3 [place] # (Auto) 0.8 Eos # (Auto) 0.0 Baso # (Auto) 0.0 PT INR APTT Sodium Potassium Chloride Carbon Dioxide Anion Gap BUN Creatinine Est GFR ( Amer) Est GFR (Non-Af Amer) Random Glucose Calcium Total Bilirubin AST ALT Alkaline Phosphatase Total Protein Albumin Globulin Albumin/Globulin Ratio Triglycerides Cholesterol LDL Cholesterol Direct HDL Cholesterol Lipase Thyroxine (T4) Total T3 TSH 3rd Generation Beta HCG, Quant < 2.39 Urine Color Straw Urine Clarity Clear Urine pH 7.0 Ur Specific Fitzhugh < 1.005 Urine Protein Negative Urine Glucose (UA) Negative Urine Ketones Negative Urine Blood Negative Urine Nitrate Negative Urine Bilirubin Negative Urine Urobilinogen 0.2 Ur Leukocyte Esterase Negative Urine RBC (Auto) 1 Urine Microscopic WBC < 1 Ur Squamous Epith Cells 1 Urine Bacteria Few H 11/24/17 05:30 WBC RBC Hgb Hct MCV MCH MCHC RDW Plt Count MPV Neut % (Auto) Lymph % (Auto) [place] % (Auto) Eos % (Auto) Baso % (Auto) Neut # (Auto) Lymph # (Auto) [place] # (Auto) Eos # (Auto) Baso # (Auto) PT INR APTT Sodium 139 Potassium 4.1 Chloride 107 Carbon Dioxide 25 Anion Gap 11 BUN 7 Creatinine 0.8 Est GFR ( Amer) > 60 Est GFR (Non-Af Amer) > 60 Random Glucose 88 Calcium 8.8 Total Bilirubin 0.2 AST 20 ALT 23 Alkaline Phosphatase 34 L D Total Protein 6.3 Albumin 3.2 L D Globulin 3.1 Albumin/Globulin Ratio 1.1 Triglycerides 92 Cholesterol 163 LDL Cholesterol Direct 56 HDL Cholesterol 83 H Lipase Thyroxine (T4) 10.5 Total T3 1.46 L TSH 3rd Generation 9.37 H Beta HCG, Quant Urine Color Urine Clarity Urine pH Ur Specific Fitzhugh Urine Protein Urine Glucose (UA) Urine Ketones Urine Blood Urine Nitrate Urine Bilirubin Urine Urobilinogen Ur Leukocyte Esterase Urine RBC (Auto) Urine Microscopic WBC Ur Squamous Epith Cells Urine Bacteria Attending/Attestation - Attestation I have personally seen and examined this patient.: Yes I have fully participated in the care of the patient.: Yes I have reviewed all pertinent clinical information: Yes Notes (Text): 11/24/17 18:28 This is a 32 year old F with no significant history who presents to the ER with abdominal pain and sigmoid colitis and an adnexal mass. CT abdomen with thickening of sigmoid colon. Will give antibiotics and stool infectious work up. Outpatient colonosocpy in 2-4 weeks will be scheduled to rule out malignancy. Clear liquid diet
--- NOTE | 2017-11-24 12:23 | CT ---
Date of service: 11/23/2017 PROCEDURE: CT Abdomen and Pelvis with contrast HISTORY: Diarrhea COMPARISON: None. TECHNIQUE: Contrast dose: 90 mL of Omnipaque 300. Axial and reformatted coronal and sagittal CT images of the abdomen and pelvis were obtained after IV contrast administration Radiation dose: Total exam DLP = 401.9 mGy-cm. This CT exam was performed using one or more of the following dose reduction techniques: Automated exposure control, adjustment of the mA and/or kV according to patient size, and/or use of iterative reconstruction technique. FINDINGS: LOWER THORAX: Unremarkable. LIVER: Unremarkable. No gross lesion or ductal dilatation. GALLBLADDER AND BILE DUCTS: Unremarkable. PANCREAS: Unremarkable. No gross lesion or ductal dilatation. SPLEEN: Unremarkable. ADRENALS: Unremarkable. No mass. KIDNEYS AND URETERS: Unremarkable. No hydronephrosis. No solid mass. VASCULATURE: Unremarkable. No aortic aneurysm. BOWEL: Moderate sigmoid and rectal wall thickening noted suggestive of colitis/proctitis. There are adjacent fat stranding in the pelvis. No evidence of high-grade bowel obstruction. Proximal and mid small bowel wall thickening is noted. APPENDIX: No evidence of appendicitis. PERITONEUM: Trace free fluid noted at the right upper abdomen. LYMPH NODES: Unremarkable. No enlarged lymph nodes. BLADDER: Unremarkable. REPRODUCTIVE: The uterus is normal in size. There is 3.3 x 2.7 centimeter enhancing soft tissue mass adjacent and to the right of the uterine fundus may represent pedunculated fibroid. BONES: No acute fracture. OTHER FINDINGS: None. IMPRESSION: Moderate wall thickening of the distal large bowel suggestive of colitis/ proctitis. 3.3 x 2.7 centimeter enhancing soft tissue mass to the right of the uterine fundus likely represent pedunculated fibroid. Further assessment by ultrasound is suggested. Preliminary report was submitted by virtual Radiology.
[2017-11-24] MEDS: Pantoprazole 40 mg EC Tab PO SCH (13:24)
[2017-11-24] MEDS: metroNIDAZOLE 500mg/100ml NS 100 ML IVPB SCH ×2 (13:25→16:42)
[2017-11-24] MEDS: Ciprofloxacin 400mg/200ml D5W 400 MG/200 ML BAG IVPB SCH ×2 (13:25→21:03)
--- NOTE | 2017-11-24 13:32 | US ---
Date of service: 11/24/2017 HISTORY: right adnexal mass? seen on CT abdomen COMPARISON: November 23, 2017. CT abdomen and pelvis. Summary of findings on the comparison examination:3.3 x 2.7 centimeter enhancing soft tissue mass to the right of the uterine fundus likely represent pedunculated fibroid. TECHNIQUE: Transabdominal only. Real-time technique with 2D, duplex and color Doppler FINDINGS: UTERUS: Measures 3.2 x 4.5 x 8.3 Cm. Normal in size, heterogeneous echo characteristics. No fibroid or other mass lesion seen. ENDOMETRIUM: Measures 2.3 mm in diameter. Unremarkable. CERVIX: No cervical abnormality identified. RIGHT OVARY: Measures 1.7 x 2.5 x 2.9 cm. No solid mass. Normal flow. LEFT OVARY: Measures 1.3 x 3.5 cm. No solid mass. Normal flow. FREE FLUID: No significant free fluid noted. OTHER FINDINGS: None. IMPRESSION: Unremarkable pelvic ultrasound. Findings identified on recent CT are not apparent on the current study.
[2017-11-25] MEDS: metroNIDAZOLE 500mg/100ml NS 100 ML IVPB SCH ×2 (01:14→09:26)
--- NOTE | 2017-11-25 08:51 | CP.PCM.PN ---
<Prabha Magdaleno - Last Filed: 11/25/17 10:57> Subjective - Date & Time of Evaluation Date of Evaluation: 11/25/17 Time of Evaluation: 07:45 - Subjective Subjective: PGY5 GI follow-up Notes Pt seen and examined bedside abd pain improved but still present in LUQ and periumbilical area denies BM, only small liquid bm yesterday denies any nausea, vomiting denies any fever, chills or diaphoresis ROS: 12 point ROS conducted, neg other than above Objective - Vital Signs/Intake and Output Vital Signs (last 24 hours): Temp Pulse Resp BP Pulse Ox 98 F 83 20 118/73 99 11/25/17 08:23 11/25/17 08:23 11/25/17 08:23 11/25/17 08:23 11/25/17 08:23 - Medications Medications: Current Medications Escitalopram Oxalate (Lexapro) 5 mg PO QAM [facility] Last Admin: 11/24/17 16:42 Dose: 5 mg Home Med (Drospir/Eth Estra/Levomefol Ca [Alem 28 Tablet]) 1 tab PO DAILY [facility] Ciprofloxacin (Cipro 400mg/200ml Dsw) 400 mg in 200 mls @ 200 mls/hr IVPB Q12 [facility] PRN Reason: Protocol Last Admin: 11/24/17 21:03 Dose: 200 mls/hr Metronidazole (Flagyl 500mg/100ml Ns) 100 mls @ 100 mls/hr IVPB Q8 [facility] PRN Reason: Protocol Last Admin: 11/25/17 01:14 Dose: 100 mls/hr Morphine Sulfate (Morphine) 2 mg IVP Q6 PRN PRN Reason: Pain, moderate (4-7) Last Admin: 11/24/17 13:24 Dose: 2 mg Pantoprazole Sodium (Protonix Ec Tab) 40 mg PO DAILY [facility] Last Admin: 11/24/17 13:24 Dose: 40 mg - Labs Labs: 11/24/17 05:30 11/24/17 05:30 PT 10.2 Seconds (9.8-13.1) 11/23/17 20:30 INR 0.9 (0.9-1.2) 11/23/17 20:30 APTT 26.5 Seconds (25.6-37.1) 07/11/18 20:30 - Constitutional Appears: Well, No Acute Distress - Head Exam Head Exam: ATRAUMATIC, NORMOCEPHALIC - Eye Exam Eye Exam: Normal appearance - ENT Exam ENT Exam: Mucous Membranes Moist, Normal Exam - Neck Exam Neck Exam: Normal Inspection - Respiratory Exam Respiratory Exam: Clear to Ausculation Bilateral, NORMAL BREATHING PATTERN. absent: Rales, Rhonchi, Wheezes, Respiratory Distress - Cardiovascular Exam Cardiovascular Exam: REGULAR RHYTHM, +S1, +S2 - GI/Abdominal Exam GI & Abdominal Exam: Tenderness (LUQ and periumbilical) - Extremities Exam Extremities Exam: absent: Joint Swelling, Pedal Edema - Neurological Exam Neurological Exam: Alert, Awake, Oriented x3 - Psychiatric Exam Psychiatric exam: Normal Affect, Normal Mood - Skin Skin Exam: Dry, Intact, Normal Color, Warm Assessment and Plan - Assessment and Plan (Free Text) Assessment: Mandy Sumner is a 32F w/ no sig hx who presents to the ER with abd pain. CT abd revealed sigmoid colitis and an adnexal mass -CT abd/pel reviewed by Dr Parham -continue IV abx, cipro flagyl, finish 7 day course at home -follow-up w/ Dr. parham as an outpt for colonoscopy -stool cultures and c.diff -diet as tolerated -continue IV fluids -blood cultures x2 -if c.diff neg and able to tolerate regular diet, can d/c home will D/W Dr. parham <Jennifer Parham - Last Filed: 11/25/17 11:43> Objective - Vital Signs/Intake and Output Vital Signs (last 24 hours): Temp Pulse Resp BP Pulse Ox 98 F 83 20 118/73 99 11/25/17 08:23 11/25/17 08:23 11/25/17 08:23 11/25/17 08:23 11/25/17 08:23 - Medications Medications: Current Medications Escitalopram Oxalate (Lexapro) 5 mg PO QAM [facility] Last Admin: 11/25/17 09:28 Dose: 5 mg Home Med (Drospir/Eth Estra/Levomefol Ca [Alem 28 Tablet]) 1 tab PO DAILY [facility] Ciprofloxacin (Cipro 400mg/200ml Dsw) 400 mg in 200 mls @ 200 mls/hr IVPB Q12 [facility] PRN Reason: Protocol Last Admin: 11/25/17 09:27 Dose: 200 mls/hr Metronidazole (Flagyl 500mg/100ml Ns) 100 mls @ 100 mls/hr IVPB Q8 [facility] PRN Reason: Protocol Last Admin: 11/25/17 09:26 Dose: 100 mls/hr Morphine Sulfate (Morphine) 2 mg IVP Q6 PRN PRN Reason: Pain, moderate (4-7) Last Admin: 11/24/17 13:24 Dose: 2 mg Pantoprazole Sodium (Protonix Ec Tab) 40 mg PO DAILY [facility] Last Admin: 11/25/17 09:28 Dose: 40 mg - Labs Labs: 11/24/17 05:30 11/24/17 05:30 PT 10.2 Seconds (9.8-13.1) 11/23/17 20:30 INR 0.9 (0.9-1.2) 11/23/17 20:30 APTT 26.5 Seconds (25.6-37.1) 11/23/17 20:30 Attending/Attestation - Attestation I have personally seen and examined this patient.: Yes I have fully participated in the care of the patient.: Yes I have reviewed all pertinent clinical information, including history, physical exam and plan: Yes Notes (Text): 11/25/17 11:41 This is a 32 year old F with no significant history who presents to the ER with abdominal pain and sigmoid colitis and an adnexal mass which was negative on pelvic sonogram. CT abdomen with thickening of sigmoid colon. Tolerated diet this morning. Will discharge on po antibiotics to finish 10 day course and scheduled for outpatient colonoscopy on 12/12.
[2017-11-25] MEDS: Ciprofloxacin 400mg/200ml D5W 400 MG/200 ML BAG IVPB SCH (09:27)
[2017-11-25] MEDS: Pantoprazole 40 mg EC Tab PO SCH (09:28)
--- NOTE | 2017-11-25 11:23 | CP.PCM.PN ---
<Gloria Pope - Last Filed: 11/25/17 13:13> Subjective - Date & Time of Evaluation Date of Evaluation: 11/25/17 Time of Evaluation: 07:40 - Subjective Subjective: Pt seen at bedside this morning with Dr. Cavazos. States she ate some ice cream yesterday and felt nauseous afterwards; continues to have abdominal pain. Was evaluated by GI - stool studies sent. Objective - Vital Signs/Intake and Output Vital Signs (last 24 hours): Temp Pulse Resp BP Pulse Ox 98 F 83 20 118/73 99 11/25/17 08:23 11/25/17 08:23 11/25/17 08:23 11/25/17 08:23 11/25/17 08:23 - Medications Medications: Current Medications Escitalopram Oxalate (Lexapro) 5 mg PO QAM [facility] Last Admin: 11/25/17 09:28 Dose: 5 mg Home Med (Drospir/Eth Estra/Levomefol Ca [Alem 28 Tablet]) 1 tab PO DAILY [facility] Ciprofloxacin (Cipro 400mg/200ml Dsw) 400 mg in 200 mls @ 200 mls/hr IVPB Q12 [facility] PRN Reason: Protocol Last Admin: 11/25/17 09:27 Dose: 200 mls/hr Metronidazole (Flagyl 500mg/100ml Ns) 100 mls @ 100 mls/hr IVPB Q8 [facility] PRN Reason: Protocol Last Admin: 11/25/17 09:26 Dose: 100 mls/hr Morphine Sulfate (Morphine) 2 mg IVP Q6 PRN PRN Reason: Pain, moderate (4-7) Last Admin: 11/24/17 13:24 Dose: 2 mg Pantoprazole Sodium (Protonix Ec Tab) 40 mg PO DAILY [facility] Last Admin: 11/25/17 09:28 Dose: 40 mg - Labs Labs: 11/24/17 05:30 11/24/17 05:30 PT 10.2 Seconds (9.8-13.1) 11/23/17 20:30 INR 0.9 (0.9-1.2) 11/23/17 20:30 APTT 26.5 Seconds (25.6-37.1) 11/23/17 20:30 - Eye Exam Eye Exam: Normal appearance - Respiratory Exam Respiratory Exam: Clear to Ausculation Bilateral, NORMAL BREATHING PATTERN - Cardiovascular Exam Cardiovascular Exam: REGULAR RHYTHM - GI/Abdominal Exam GI & Abdominal Exam: Soft, Tenderness (epigastric and LUQ/LLQ) - Extremities Exam Extremities Exam: Normal Inspection. absent: Calf Tenderness - Neurological Exam Neurological Exam: Alert, Awake, Oriented x3 Assessment and Plan - Assessment and Plan (Free Text) Assessment: 32 yo F with no known med hx; admitted due to abdominal pain and change in stool character, with findings of colitis on CT. Previously seen adnexal mass on CT not evident on pelvic u/s. Plan: - Abx: cipro and flagyll - GI consult- Dr. Parham -- stool for ova/parasites; follow up outpt 12/12 for colonoscopy, antibiotics x10 days total - Advance diet as tolerated - SCD <Aureliano Cavazos K - Last Filed: 11/26/17 08:44> Objective - Vital Signs/Intake and Output Vital Signs (last 24 hours): Temp Pulse Resp BP Pulse Ox 97.6 F 90 18 106/75 97 11/26/17 00:44 11/26/17 00:44 11/26/17 00:44 11/26/17 00:44 11/26/17 00:44 - Medications Medications: Current Medications Acetaminophen (Tylenol 325mg Tab) 650 mg PO Q6 PRN PRN Reason: Headache Last Admin: 11/25/17 16:14 Dose: 650 mg Ciprofloxacin (Cipro) 500 mg PO Q12 [facility] PRN Reason: Protocol Last Admin: 11/26/17 08:29 Dose: 500 mg Escitalopram Oxalate (Lexapro) 5 mg PO QAM [facility] Last Admin: 11/26/17 08:30 Dose: 5 mg Home Med (Drospir/Eth Estra/Levomefol Ca [Alem 28 Tablet]) 1 tab PO DAILY [facility] Last Admin: 11/26/17 08:30 Dose: 1 tab Metronidazole (Flagyl) 500 mg PO Q8 [facility] PRN Reason: Protocol Last Admin: 11/26/17 08:30 Dose: 500 mg Morphine Sulfate (Morphine) 2 mg IVP Q6 PRN PRN Reason: Pain, moderate (4-7) Last Admin: 11/24/17 13:24 Dose: 2 mg Pantoprazole Sodium (Protonix Ec Tab) 40 mg PO DAILY [facility] Last Admin: 11/26/17 08:30 Dose: 40 mg - Labs Labs: 11/24/17 05:30 11/24/17 05:30 PT 10.2 Seconds (9.8-13.1) 11/23/17 20:30 INR 0.9 (0.9-1.2) 11/23/17 20:30 APTT 26.5 Seconds (25.6-37.1) 11/23/17 20:30 Assessment and Plan - Assessment and Plan (Free Text) Plan: Patient was personally seen and examined by me in rounds with residents. Available labs and diagnostic data reviewed. Case, Patient's condition and management plan discussed with residents in rounds. Agree with resident's progress note. Plan: As ordered.
[2017-11-25] MEDS: [UNRECOGNIZED DRUG - OTHER] PO SCH (12:51)
[2017-11-26] MEDS: Pantoprazole 40 mg EC Tab PO SCH (08:30)
[2017-11-26] MEDS: [UNRECOGNIZED DRUG - OTHER] PO SCH (08:30)
[2017-11-26 08:53] VITALS: BP 120/80; PULSE 71; RESP 20; TEMP 98.1
[2017-11-27 10:20] VITALS: O2SAT 99
== END 2017-11-26 10:10 | disposition home or self-care (01) | DRG 392 ==
LOC: H.ER 19:12 → H.ERHOLD 23:10 → H.MEDSURG1 11-24 01:50 → OBSVTOIN 11-24 16:15
PROVIDERS: ADMIT Internal Medicine; ATTEND Internal Medicine
DX: K52.9 Noninfective gastroenteritis and colitis, unspecified (principal); I10 Essential (primary) hypertension; Z79.899 Other long term (current) drug therapy